=== PATIENT | female | born 1990 | race Hispanic/Latino ===

== ENCOUNTER 2018-07-01 17:26 | Emergency (ER) | payer SELFPAY ==
[2018-07-01 17:41] VITALS: BP 109/68
--- NOTE | 2018-07-01 21:48 | Emergency Department Report ---
- General Chief Complaint: Wound/Laceration Stated Complaint: FOOT PAIN/INFECTION Time Seen by Provider: 07/01/18 21:38 Source: patient Mode of arrival: Ambulatory Limitations: No Limitations - History of Present Illness Initial Comments: 27-year-old female presents to the emergency department complaining of to the bottom left foot which she reports is in develop due to excessive ambulation outdoors. She persistently request topical anti-biotics for management. Says she has consulted with her father who is a doctor as needed advised accordingly. Does not wish to obtain any other forms of therapy as an IV or oral anti-biotics. She denies fever, chills, sweats, leg swelling. -: Gradual, week(s) (2) Extremity Location: Left: Foot (plantar surface ) Place: outdoors Patient Tetanus UTD: Yes Associated Symptoms: none - Related Data Previous Rx's Medication Instructions Recorded Last Taken Type Mupirocin [Bactroban 2%] 1 applic TP TID #1 tube 07/01/18 Unknown Rx Allergies Allergy/AdvReac Type Severity Reaction Status Date / Time No Known Allergies Allergy Unverified 07/01/18 17:41 ED Review of Systems ROS: Stated complaint: FOOT PAIN/INFECTION Other details as noted in HPI Constitutional: denies: chills, fever Eyes: denies: eye pain, eye discharge, vision change ENT: denies: ear pain, throat pain Respiratory: denies: cough, shortness of breath, wheezing Cardiovascular: denies: chest pain, palpitations Endocrine: no symptoms reported Gastrointestinal: denies: abdominal pain, nausea, diarrhea Genitourinary: denies: urgency, dysuria, discharge Musculoskeletal: denies: back pain, joint swelling, arthralgia Skin: denies: rash, lesions Neurological: denies: headache, weakness, paresthesias Psychiatric: denies: anxiety, depression Hematological/Lymphatic: denies: easy bleeding, easy bruising ED Past Medical Hx - Past Medical History Previous Medical History?: No - Surgical History Past Surgical History?: No - Social History Smoking Status: Never Smoker Substance Use Type: Marijuana - Medications Home Medications: Home Medications Medication Instructions Recorded Confirmed Last Taken Type Mupirocin [Bactroban 2%] 1 applic TP TID #1 tube 07/01/18 Unknown Rx ED Physical Exam - General Limitations: No Limitations General appearance: alert, in no apparent distress - Head Head exam: Present: atraumatic, normocephalic - Eye Eye exam: Present: normal appearance - ENT ENT exam: Present: mucous membranes moist - Neck Neck exam: Present: normal inspection - Respiratory Respiratory exam: Present: normal lung sounds bilaterally. Absent: respiratory distress - Cardiovascular Cardiovascular Exam: Present: regular rate, normal rhythm. Absent: systolic murmur, diastolic murmur, rubs, gallop - GI/Abdominal GI/Abdominal exam: Present: soft, normal bowel sounds - Extremities Exam Extremities exam: Present: normal inspection - Expanded Lower Extremity Exam Left Hip exam: Present: normal inspection, full ROM Upper Leg exam: Present: normal inspection Knee exam: Present: normal inspection. Absent: full ROM, tenderness Lower Leg exam: Present: normal inspection Ankle exam: Present: normal inspection Foot/Toe exam: Present: full ROM. Absent: laceration, ecchymosis, deformity Neuro vascular tendon exam: Absent: abnormal cap refill, motor deficit, sensory deficit 1 - 4 cm blister with serous fluids with some dirt to the feet. Local redness. No bleeding or pus noted. No significant edema. - Back Exam Back exam: Present: normal inspection. Absent: muscle spasm, paraspinal tenderness, vertebral tenderness - Neurological Exam Neurological exam: Present: alert, oriented X3, CN II-XII intact - Psychiatric Psychiatric exam: Present: normal affect, normal mood - Skin Skin exam: Present: warm, dry, intact, normal color. Absent: rash ED Course Vital Signs 07/01/18 17:38 Temperature 98.6 F Pulse Rate 102 H Respiratory 16 Rate Blood Pressure 109/68 O2 Sat by Pulse 98 Oximetry ED Medical Decision Making - Medical Decision Making Discussed wound care management with Ms. Moran. Advised that antimicrobials washes and ointments as well as oral antibodies would be optimal treatment as early infection was beginning to elevate her foot. Again, she refused all forms of antibodies with the exception of topical. She is aware of the risk involved. She states her father is a doctor. She has consulted Critical care attestation.: If time is entered above; I have spent that time in minutes in the direct care of this critically ill patient, excluding procedure time. ED Disposition Clinical Impression: Wound, open, foot Disposition: DC-01 TO HOME OR SELFCARE Is pt being admited?: No Does the pt Need Aspirin: No Condition: Stable Instructions: Wound Healing and Your Diet (ED), Acute Wound Care (ED) Prescriptions: Mupirocin [Bactroban 2%] 1 applic TP TID #1 tube Referrals: PRIMARY CARE, [Primary Care Provider] - 3-[address] [facility] [Provider Group] - 3-5 Days
== END 2018-07-01 22:42 | disposition home or self-care (01) ==
LOC: ED 17:26
DX: S91.302A Unspecified open wound, left foot, initial encounter (principal); F12.10 Cannabis abuse, uncomplicated; X58.XXXA Exposure to other specified factors, initial encounter; Y93.K1 Activity, walking an animal; Y99.8 Other external cause status; Y92.89 Other specified places as the place of occurrence of the external cause
CPT/HCPCS: 99281